=== PATIENT | male | born 1955 | race Asian ===

== ENCOUNTER 2017-03-06 03:16 | Inpatient (IN) | payer MEDICARE, OTHER ==
[~2017-03-06] VITALS: Ht 165.1 cm; Wt 78.9 kg
[~2017-03-06 03:16] MED LIST: AMLO5TAB66 PO; ASPI325T PO; ATOR10TA84 PO; CINA30 PO; CLON0.2T PO; FAMO20TA8 PO; FLUT16H NASAL; INSU100C3 SQ; INSU100C4 SQ; LABE200T PO; LOSA100T29 PO; NITR.4 SL; SEVE400 PO; WARF1 PO
[2017-03-06] MEDS ORDERED: ASPIRIN 81 MG CHEWABLE TABLET PO ONE (03:30)
[2017-03-06 04:10] LABS: BASOPHILS # (AUTO) 0.02 K/uL (0.00-0.20); BASOPHILS % (AUTO) 0.5 % (0.0-2.0); EOSINOPHILS % (AUTO) 6.39 % (1.0-6.0); HEMATOCRIT 25.5 % (41-53); HEMOGLOBIN 8.3 g/dL (13.5-17.5); LYMPHOCYTES # (AUTO) 0.9 K/uL (1.0-4.8); LYMPHOCYTES % (AUTO) 19.8 % (22.0-44.0); MEAN CORPUSCULAR HEMOGLOBIN 30.9 pg (26.0-34.0); MEAN CORPUSCULAR HGB CONC 32.4 G/dL (31.0-37.0); MEAN CORPUSCULAR VOLUME 95 fL (80-100); MONOCYTES # (AUTO) 0.5 K/uL (0.1-1.0); MONOCYTES % (AUTO) 9.9 % (2.0-9.0); NEUTROPHILS % (AUTO) 63.5 % (40.0-70.0); PLATELET COUNT (AUTO) 174 K/uL (150-450); RED BLOOD CELL COUNT(AUTO) 2.67 MIL/uL (4.50-5.90); WHITE BLOOD COUNT (AUTO) 4.8 K/uL (4.5-11.0)
[2017-03-06 04:16] LABS: INR 1.4 (0.9-1.1); PROTHROMBIN TIME 14.7 SEC (9.4-11.6)
[2017-03-06 04:35] LABS: CALCIUM, TOTAL 9.4 mg/dL (8.8-10.5); CREATININE 9.57 mg/dL (0.60-1.30); POTASSIUM 4.5 mmol/L (3.5-5.1)
[2017-03-06 04:41] LABS: ALBUMIN 3.6 g/dL (3.4-5.0); BILIRUBIN,TOTAL 0.5 mg/dL (0.1-1.0); TOTAL PROTEIN, SERUM 8.1 g/dL (6.4-8.2)
[2017-03-06] MEDS ORDERED: ONDANSETRON HCL 4 MG/2 ML VIAL IVP PRN (04:45)
[2017-03-06] MEDS ORDERED: NITROGLYCERIN 50 MG/D5% WATER 250 ML IV PRN (04:45)
[2017-03-06] MEDS ORDERED: 0.9% SODIUM CHLORIDE 10 ML SYRINGE IVP PRN (04:45)
[2017-03-06] MEDS ORDERED: ACETAMINOPHEN 325 MG TABLET PO PRN ×2 (04:45→07:30)
[2017-03-06] MEDS ORDERED: CloNIDine HCL 0.1 MG TABLET PO ONE (05:00)
[2017-03-06 05:24] VITALS: BP 158/53
[2017-03-06 07:25] VITALS: BP 141/78
[2017-03-06] MEDS ORDERED: OxyCODONE HCL/ACETAMINOPHEN 5-325 MG TABLET PO PRN (07:30)
[2017-03-06] MEDS ORDERED: BISACODYL 10 MG RECTAL RECTAL SUPPOSITORY PR PRN (07:30)
[2017-03-06] MEDS ORDERED: *CLINICAL-WARFARIN SODIUM DOSING CLINICAL ONE ×2 (07:45)
[2017-03-06] MEDS ORDERED: DEXTROSE 50%-WATER 25 GM/50 ML SYRINGE IVP PRN (07:45)
[2017-03-06] MEDS ORDERED: MANNITOL 25%-12.5 GM/50 ML VIAL IVP PRN ×2 (08:45→10:30)
[2017-03-06] MEDS ORDERED: ALBUMIN HUMAN 25%-12.5GM/50ML IV BOTTLE IV PRN ×2 (08:45→10:30)
[2017-03-06] MEDS ORDERED: DOXERCALCIFEROL 4 MCG/2 ML AMP IVP SCH (10:45)
[2017-03-06] MEDS ORDERED: EPOETIN ALFA 10,000 UNITS/ML VIAL SQ ONE (10:45)
[2017-03-06 11:00] VITALS: BP 150/66
[2017-03-06] MEDS: ASPIRIN 81 MG CHEWABLE TABLET PO SCH (13:00)
[2017-03-06] MEDS: DOCUSATE SODIUM 100 MG CAPSULE PO SCH ×2 (13:00→20:43)
[2017-03-06] MEDS: SEVELAMER CARBONATE 800 MG TABLET PO SCH ×2 (13:01→18:10)
[2017-03-06] MEDS: HEPARIN SODIUM,PORCINE 5,000 UNITS/ML VIAL SQ SCH ×2 (13:01→20:43)
[2017-03-06] MEDS: PANTOPRAZOLE SODIUM 40 MG DR TABLET PO SCH (13:01)
[2017-03-06] MEDS: CloNIDine HCL 0.2 MG TABLET PO SCH ×2 (13:01→20:43)
[2017-03-06] MEDS: EPOETIN ALFA 10,000 UNITS/ML VIAL SQ SCH (13:02)
[2017-03-06 15:21] VITALS: BP 143/63
[2017-03-06] MEDS ORDERED: WARFARIN SODIUM 5 MG TABLET PO SCH (17:00)
[2017-03-06] MEDS: INSULIN ASPART 100 UNITS/ML SQ PRN ×2 (18:12→20:48)
[2017-03-06 19:57] VITALS: BP 149/76
[2017-03-06 19:57] LABS: GLUCOSE,POINT OF CARE 228 MG/DL (70-110)
[2017-03-06] MEDS: ATORVASTATIN CALCIUM 20 MG TABLET PO SCH (20:43)
[2017-03-07 00:15] VITALS: BP 135/62
[2017-03-07 04:17] VITALS: BP 139/71
[2017-03-07] MEDS: INSULIN ASPART 100 UNITS/ML SQ PRN ×2 (06:40→17:49)
[2017-03-07 06:42] LABS: INR 1.4 (0.9-1.1); PROTHROMBIN TIME 15.1 SEC (9.4-11.6)
[2017-03-07 06:47] LABS: BASOPHILS % (AUTO) 0.9 % (0.0-2.0); EOSINOPHILS % (AUTO) 8.6 % (1.0-6.0); HEMATOCRIT 23.6 % (41-53); HEMOGLOBIN 7.5 g/dL (13.5-17.5); LYMPHOCYTES # (AUTO) 0.7 K/uL (1.0-4.8); LYMPHOCYTES % (AUTO) 19.7 % (22.0-44.0); MEAN CORPUSCULAR HEMOGLOBIN 30.5 pg (26.0-34.0); MEAN CORPUSCULAR HGB CONC 31.9 G/dL (31.0-37.0); MEAN CORPUSCULAR VOLUME 96 fL (80-100); MONOCYTES # (AUTO) 0.4 K/uL (0.1-1.0); MONOCYTES % (AUTO) 10.8 % (2.0-9.0); NEUTROPHILS # (AUTO) 2.2 K/uL (1.8-7.7); PLATELET COUNT (AUTO) 152 K/uL (150-450); RED BLOOD CELL COUNT(AUTO) 2.47 MIL/uL (4.50-5.90); RED CELL DISTRIBUTION WIDTH 19.8 % (11.5-14.5); WHITE BLOOD COUNT (AUTO) 3.7 K/uL (4.5-11.0)
[2017-03-07 07:03] LABS: ALBUMIN 3.4 g/dL (3.4-5.0); BILIRUBIN,TOTAL 0.4 mg/dL (0.1-1.0); CALCIUM, TOTAL 9.1 mg/dL (8.8-10.5); CREATININE 7.22 mg/dL (0.60-1.30); PHOSPHORUS 5.4 mg/dL (2.5-4.9); POTASSIUM 5.6 mmol/L (3.5-5.1); TOTAL PROTEIN, SERUM 7.5 g/dL (6.4-8.2)
[2017-03-07 07:27] LABS: GLUCOSE,POINT OF CARE 134 MG/DL (70-110)
[2017-03-07 07:47] VITALS: BP 158/91
[2017-03-07] MEDS: ASPIRIN 81 MG CHEWABLE TABLET PO SCH (08:21)
[2017-03-07] MEDS: SEVELAMER CARBONATE 800 MG TABLET PO SCH ×3 (08:21→18:26)
[2017-03-07] MEDS: DOCUSATE SODIUM 100 MG CAPSULE PO SCH ×2 (08:21→20:28)
[2017-03-07] MEDS: PANTOPRAZOLE SODIUM 40 MG DR TABLET PO SCH (08:21)
[2017-03-07] MEDS: HEPARIN SODIUM,PORCINE 5,000 UNITS/ML VIAL SQ SCH ×2 (08:23→20:28)
[2017-03-07] MEDS ORDERED: SODIUM CHLORIDE 0.9% 1,000 ML IV ONE (08:32)
[2017-03-07 13:10] VITALS: BP 160/88
[2017-03-07] MEDS: CloNIDine HCL 0.2 MG TABLET PO SCH ×2 (13:10→20:28)
[2017-03-07] MEDS: LOSARTAN POTASSIUM 50 MG TABLET PO SCH (13:11)
[2017-03-07] MEDS ORDERED: WARFARIN SODIUM-INR 2.0-3.0-RX DOSING PER PROTOCOL PO PRN (16:00)
[2017-03-07 16:10] VITALS: BP 135/72
[2017-03-07] MEDS ORDERED: WARFARIN SODIUM 2.5 MG TABLET PO SCH (17:00)
[2017-03-07] MEDS ORDERED: WARFARIN SODIUM 5 MG TABLET PO ONE (17:00)
[2017-03-07 20:04] VITALS: BP 119/84
[2017-03-07 20:12] LABS: GLUCOSE,POINT OF CARE 133 MG/DL (70-110)
[2017-03-07 20:12] LABS: GLUCOSE,POINT OF CARE 190 MG/DL (70-110)
[2017-03-07] MEDS: ATORVASTATIN CALCIUM 20 MG TABLET PO SCH (20:28)
[2017-03-08] VITALS (7 sets, daily range): BP systolic 133–180; BP diastolic 65–99
[2017-03-08 03:47] LABS: GLUCOSE,POINT OF CARE 100 MG/DL (70-110)
[2017-03-08] MEDS: INSULIN ASPART 100 UNITS/ML SQ PRN ×3 (06:24→17:36)
[2017-03-08 07:12] LABS: GLUCOSE COMMENT 1 Received Meds; GLUCOSE,POINT OF CARE 141 MG/DL (70-110)
[2017-03-08 07:30] LABS: BASOPHILS # (AUTO) 0.03 K/uL (0.00-0.20); BASOPHILS % (AUTO) 0.9 % (0.0-2.0); EOSINOPHILS # (AUTO) 0.27 K/uL (0.00-0.70); EOSINOPHILS % (AUTO) 6.91 % (1.0-6.0); HEMATOCRIT 26.3 % (41-53); HEMOGLOBIN 8.5 g/dL (13.5-17.5); LYMPHOCYTES # (AUTO) 0.9 K/uL (1.0-4.8); LYMPHOCYTES % (AUTO) 21.7 % (22.0-44.0); MEAN CORPUSCULAR HEMOGLOBIN 31.2 pg (26.0-34.0); MEAN CORPUSCULAR HGB CONC 32.4 G/dL (31.0-37.0); MEAN CORPUSCULAR VOLUME 96 fL (80-100); MONOCYTES # (AUTO) 0.4 K/uL (0.1-1.0); MONOCYTES % (AUTO) 10.2 % (2.0-9.0); NEUTROPHILS # (AUTO) 2.4 K/uL (1.8-7.7); NEUTROPHILS % (AUTO) 60.3 % (40.0-70.0); PLATELET COUNT (AUTO) 174 K/uL (150-450); RED BLOOD CELL COUNT(AUTO) 2.73 MIL/uL (4.50-5.90); RED CELL DISTRIBUTION WIDTH 19.5 % (11.5-14.5)
[2017-03-08 07:36] LABS: INR 1.6 (0.9-1.1)
[2017-03-08 07:54] LABS: ALBUMIN 3.6 g/dL (3.4-5.0); BILIRUBIN,TOTAL 0.4 mg/dL (0.1-1.0); CALCIUM, TOTAL 9.3 mg/dL (8.8-10.5); CREATININE 7.28 mg/dL (0.60-1.30); MAGNESIUM 1.8 mg/dL (1.80-2.40); PHOSPHORUS 5.6 mg/dL (2.5-4.9); POTASSIUM 4.7 mmol/L (3.5-5.1); TOTAL PROTEIN, SERUM 8.2 g/dL (6.4-8.2)
[2017-03-08] MEDS: LOSARTAN POTASSIUM 50 MG TABLET PO SCH (08:09)
[2017-03-08] MEDS: PANTOPRAZOLE SODIUM 40 MG DR TABLET PO SCH (08:09)
[2017-03-08] MEDS: ASPIRIN 81 MG CHEWABLE TABLET PO SCH (08:09)
[2017-03-08] MEDS: HEPARIN SODIUM,PORCINE 5,000 UNITS/ML VIAL SQ SCH (08:09)
[2017-03-08] MEDS: SEVELAMER CARBONATE 800 MG TABLET PO SCH ×3 (08:09→17:35)
[2017-03-08] MEDS: CloNIDine HCL 0.2 MG TABLET PO SCH ×2 (08:09→20:17)
[2017-03-08] MEDS: DOCUSATE SODIUM 100 MG CAPSULE PO SCH ×2 (08:09→20:18)
[2017-03-08] MEDS ORDERED: HEPARIN SODIUM,PORCINE 5,000 UNITS/ML VIAL IVP PRN ×2 (12:00)
[2017-03-08] MEDS ORDERED: HEPARIN SODIUM 25000 UNITS/D5W 250 ML IV PRN (12:00)
[2017-03-08] MEDS ORDERED: WARFARIN SODIUM 5 MG TABLET PO ONE (17:00)
[2017-03-08] MEDS ORDERED: WARFARIN SODIUM 2.5 MG TABLET PO SCH (17:00)
[2017-03-08] MEDS: ATORVASTATIN CALCIUM 20 MG TABLET PO SCH (20:17)
[2017-03-09 00:55] VITALS: BP 150/69
[2017-03-09] MEDS ORDERED: LIDOCAINE HCL/PF 2% 5 ML VIAL IM ONE (02:03)
[2017-03-09] MEDS ORDERED: PROPOFOL 1% 20 ML VIAL IVP ONE (02:03)
[2017-03-09 04:23] VITALS: BP 161/73
[2017-03-09 05:57] LABS: GLUCOSE,POINT OF CARE 140 MG/DL (70-110)
[2017-03-09 05:58] LABS: GLUCOSE,POINT OF CARE 178 MG/DL (70-110)
[2017-03-09 06:52] LABS: BASOPHILS % (AUTO) 1.1 % (0.0-2.0); EOSINOPHILS % (AUTO) 7.1 % (1.0-6.0); HEMATOCRIT 25.4 % (41-53); HEMOGLOBIN 8.2 g/dL (13.5-17.5); LYMPHOCYTES % (AUTO) 23.7 % (22.0-44.0); MEAN CORPUSCULAR HEMOGLOBIN 30.6 pg (26.0-34.0); MEAN CORPUSCULAR HGB CONC 32.3 G/dL (31.0-37.0); MEAN CORPUSCULAR VOLUME 95 fL (80-100); MONOCYTES # (AUTO) 0.4 K/uL (0.1-1.0); MONOCYTES % (AUTO) 9.2 % (2.0-9.0); NEUTROPHILS # (AUTO) 2.4 K/uL (1.8-7.7); NEUTROPHILS % (AUTO) 58.9 % (40.0-70.0); PLATELET COUNT (AUTO) 166 K/uL (150-450); RED BLOOD CELL COUNT(AUTO) 2.69 MIL/uL (4.50-5.90); RED CELL DISTRIBUTION WIDTH 19.9 % (11.5-14.5); WHITE BLOOD COUNT (AUTO) 4.2 K/uL (4.5-11.0)
[2017-03-09 07:07] LABS: RBC MORPHOLOGY COMMENT ABNORMAL RBC MORPH
[2017-03-09 07:08] LABS: GLUCOSE,POINT OF CARE 133 MG/DL (70-110)
[2017-03-09 07:28] VITALS: BP 155/94
[2017-03-09 07:45] LABS: INR 1.9 (0.9-1.1); PROTHROMBIN TIME 19.9 SEC (9.4-11.6)
[2017-03-09 07:52] LABS: CALCIUM, TOTAL 9.2 mg/dL (8.8-10.5); CREATININE 9.02 mg/dL (0.60-1.30); POTASSIUM 5.6 mmol/L (3.5-5.1)
[2017-03-09] MEDS: SEVELAMER CARBONATE 800 MG TABLET PO SCH ×3 (08:00→18:52)
[2017-03-09] MEDS: ASPIRIN 81 MG CHEWABLE TABLET PO SCH (09:00)
[2017-03-09] MEDS: LOSARTAN POTASSIUM 50 MG TABLET PO SCH (09:00)
[2017-03-09] MEDS: DOCUSATE SODIUM 100 MG CAPSULE PO SCH ×2 (09:00→20:35)
[2017-03-09] MEDS: PANTOPRAZOLE SODIUM 40 MG DR TABLET PO SCH (09:00)
[2017-03-09] MEDS: CloNIDine HCL 0.2 MG TABLET PO SCH ×2 (09:00→20:35)
[2017-03-09] MEDS: EPOETIN ALFA 10,000 UNITS/ML VIAL SQ SCH (10:23)
[2017-03-09] MEDS ORDERED: SODIUM CHLORIDE 0.9% 1,000 ML IV ONE ×2 (10:51→11:00)
[2017-03-09] MEDS ORDERED: ALBUTEROL SULFATE 2.5 MG/0.5 ML NEB SOLUTION NEB ONE (12:36)
[2017-03-09] MEDS ORDERED: IPRATROPIUM BROMIDE 0.5 MG/2.5 ML NEB SOLUTION NEB ONE (12:36)
[2017-03-09 15:41] VITALS: BP 179/76
[2017-03-09] MEDS ORDERED: WARFARIN SODIUM 2.5 MG TABLET PO ONE (17:00)
[2017-03-09 17:17] LABS: GLUCOSE,POINT OF CARE 138 MG/DL (70-110)
[2017-03-09] MEDS ORDERED: AMLO-512 PO (18:22)
[2017-03-09] MEDS: INSULIN ASPART 100 UNITS/ML SQ PRN ×2 (18:53→20:35)
[2017-03-09 20:01] LABS: GLUCOSE,POINT OF CARE 105 MG/DL (70-110)
[2017-03-09 20:02] LABS: GLUCOSE,POINT OF CARE 168 MG/DL (70-110)
[2017-03-09 20:20] VITALS: BP 163/77
[2017-03-09] MEDS: ATORVASTATIN CALCIUM 20 MG TABLET PO SCH (20:35)
[2017-03-10 00:30] VITALS: BP 157/82
[2017-03-10 00:37] LABS: GLUCOSE,POINT OF CARE 267 MG/DL (70-110)
[2017-03-10 05:16] VITALS: BP 158/70
[2017-03-10 07:08] VITALS: BP 164/89
[2017-03-10 07:41] LABS: INR 2.2 (0.9-1.1)
[2017-03-10 07:42] LABS: GLUCOSE,POINT OF CARE 111 MG/DL (70-110)
[2017-03-10 08:54] LABS: BASOPHILS % (AUTO) 0.9 % (0.0-2.0); EOSINOPHILS % (AUTO) 5.6 % (1.0-6.0); HEMATOCRIT 24.5 % (41-53); HEMOGLOBIN 7.8 g/dL (13.5-17.5); LYMPHOCYTES # (AUTO) 0.6 K/uL (1.0-4.8); LYMPHOCYTES % (AUTO) 15.4 % (22.0-44.0); MEAN CORPUSCULAR HEMOGLOBIN 30.5 pg (26.0-34.0); MEAN CORPUSCULAR HGB CONC 31.8 G/dL (31.0-37.0); MEAN CORPUSCULAR VOLUME 96 fL (80-100); MONOCYTES # (AUTO) 0.4 K/uL (0.1-1.0); MONOCYTES % (AUTO) 9.5 % (2.0-9.0); NEUTROPHILS # (AUTO) 2.7 K/uL (1.8-7.7); NEUTROPHILS % (AUTO) 68.6 % (40.0-70.0); PLATELET COUNT (AUTO) 164 K/uL (150-450); RED BLOOD CELL COUNT(AUTO) 2.55 MIL/uL (4.50-5.90); RED CELL DISTRIBUTION WIDTH 20.8 % (11.5-14.5); WHITE BLOOD COUNT (AUTO) 3.9 K/uL (4.5-11.0)
[2017-03-10 08:57] LABS: CALCIUM, TOTAL 9.4 mg/dL (8.8-10.5); CREATININE 6.63 mg/dL (0.60-1.30)
[2017-03-10] MEDS: DOCUSATE SODIUM 100 MG CAPSULE PO SCH ×2 (09:00→10:16)
[2017-03-10] MEDS ORDERED: IRON SUCROSE COMPLEX 100 MG in SODIUM CHLORIDE 0.9% 100 ML IV SCH (09:45)
[2017-03-10] MEDS: SEVELAMER CARBONATE 800 MG TABLET PO SCH ×3 (10:15→18:22)
[2017-03-10] MEDS: ASPIRIN 81 MG CHEWABLE TABLET PO SCH (10:15)
[2017-03-10] MEDS: LOSARTAN POTASSIUM 50 MG TABLET PO SCH (10:16)
[2017-03-10] MEDS: CloNIDine HCL 0.2 MG TABLET PO SCH (10:16)
[2017-03-10] MEDS: PANTOPRAZOLE SODIUM 40 MG DR TABLET PO SCH (10:16)
[2017-03-10 10:40] LABS: RBC MORPHOLOGY COMMENT ABNORMAL RBC MORPH
[2017-03-10 11:05] VITALS: BP 153/72
[2017-03-10] MEDS: INSULIN ASPART 100 UNITS/ML SQ PRN (12:32)
[2017-03-10] MEDS ORDERED: WARFARIN SODIUM 2.5 MG TABLET PO ONE (17:00)
[2017-03-10] MEDS ORDERED: ASPI81 PO (17:21)
[2017-03-10] MEDS ORDERED: EPOE20002 SQ (17:42)
[2017-03-10] MEDS ORDERED: CINACALCET HCL 30 MG TABLET PO SCH (18:00)
[2017-03-10 20:38] LABS: GLUCOSE,POINT OF CARE 121 MG/DL (70-110)
[2017-03-10 20:38] LABS: GLUCOSE COMMENT 1 Received Meds; GLUCOSE,POINT OF CARE 165 MG/DL (70-110)
== END 2017-03-10 18:40 | disposition home or self-care (01) | DRG 291 ==
LOC: EMS 03:17 → 5N 04:15
PROVIDERS: ADMIT Internal Medicine; ATTEND Internal Medicine
PROC: 5A1D60Z (ICD-10-PCS; principal; 2017-03-06)
PROC: 0DJ08ZZ Inspection of Upper Intestinal Tract, Via Natural or Artificial Opening Endoscopic (ICD-10-PCS; 2017-03-09)
DX: I13.2 Hypertensive heart and chronic kidney disease with heart failure and with stage 5 chronic kidney disease, or end stage renal disease (principal); N18.6 End stage renal disease; N25.81 Secondary hyperparathyroidism of renal origin; I50.20 Unspecified systolic (congestive) heart failure; R07.89 Other chest pain; I25.10 Atherosclerotic heart disease of native coronary artery without angina pectoris; E11.22 Type 2 diabetes mellitus with diabetic chronic kidney disease; I48.0 Paroxysmal atrial fibrillation; J45.909 Unspecified asthma, uncomplicated; E11.42 Type 2 diabetes mellitus with diabetic polyneuropathy; D63.1 Anemia in chronic kidney disease; I15.9 Secondary hypertension, unspecified; E78.5 Hyperlipidemia, unspecified; D50.9 Iron deficiency anemia, unspecified; E87.5 Hyperkalemia; K26.9 Duodenal ulcer, unspecified as acute or chronic, without hemorrhage or perforation; K29.80 Duodenitis without bleeding; E78.00 Pure hypercholesterolemia, unspecified; Z95.1 Presence of aortocoronary bypass graft; Z99.2 Dependence on renal dialysis; Z79.899 Other long term (current) drug therapy; Z79.4 Long term (current) use of insulin; Z79.82 Long term (current) use of aspirin; Z79.01 Long term (current) use of anticoagulants; Z98.49 Cataract extraction status, unspecified eye
CPT/HCPCS: 82271; 82728; 82962; 83540; 83550; 83735; 84100; 87340; 93005; 93306; 94640; 99285; J0885; J1644; J1756; J2704; J3490; J7030; J7050